=== PATIENT | female | born 1935 | race Caucasian/White ===

== ENCOUNTER 2016-11-21 12:43 | Outpatient (CLI) | payer MEDICARE, OTHER ==
[2016-11-21 14:42] LABS: #Eosinphils 0.1 thou/uL (0.0-0.7); #Lymphocytes 0.8 thou/uL (1.20-3.40); #Monocytes 0.5 thou/uL (0.11-0.59); #Neutrophils 4.6 thou/uL (1.40-6.50); %Basophils 0.5 % (0.0-1.0); %Eosinophils 2.4 % (0.0-10.0); %Lymphocytes 12.6 % (21.0-51.0); %Monocytes 7.5 % (0.0-10.0); Hematocrit 37.2 % (36.0-47.0); Red Blood Cell (RBC) Count 3.66 mill/uL (4.20-5.40)
[2016-11-21 14:51] LABS: Anion Gap 12 mmol/L (10-20); BUN (Urea Nitrogen) 20 mg/dL (9.8-20.1); Calc. Creatinine Clearance 0 mL/min (70-130); Calcium 9.1 mg/dL (7.8-10.44); Carbon Dioxide 25 mmol/L (23-31); Chloride 104 mmol/L (98-107); Estimated GFR-MDRD 74
== END 2016-11-21 12:44 | disposition home or self-care (01) ==
LOC: LABBT 12:43
PROVIDERS: ATTEND Specialist
DX: Z01.818 Encounter for other preprocedural examination (principal); G35 Multiple sclerosis
CPT/HCPCS: 80048; 85025; 93005; 93010

== ENCOUNTER 2016-12-04 10:30 | Day surgery (SDC) | payer MEDICARE, OTHER ==
[2016-11-21 13:24] VITALS: BMI 21.9
[2016-12-04] MEDS ORDERED: Ketorolac Tromethamine 30 MG/ML VIAL ONE (11:29)
[2016-12-04] MEDS ORDERED: CEFAZOLIN/Water 2 GM/20 ML SYRINGE ONE (11:29)
[2016-12-04] MEDS ORDERED: Lidocaine 2% w/Epinephrine 1:200K 20 ML VIAL ONE (14:19)
[2016-12-04] MEDS ORDERED: Bupivacaine 0.25% HCL 30 ML VIAL ONE (14:19)
[2016-12-04] MEDS ORDERED: Fentanyl 100 MCG/2 ML VIAL ONE (14:21)
[2016-12-04] MEDS ORDERED: Lidocaine 1% PF 5 ML VIAL ONE (14:40)
[2016-12-04] MEDS ORDERED: Propofol 200 MG/20 ML VIAL ONE (14:40)
[2016-12-04] MEDS ORDERED: Acetaminophen 325 MG TAB ONE (16:41)
--- NOTE | 2016-12-04 17:31 | RAD ---
PORTABLE UPRIGHT FRONTAL CHEST RADIOGRAPH: 12/04/16 COMPARISON: None. HISTORY: Mediport placement. FINDINGS: A right sided Mediport is present, distal tip overlying the cavoatrial junction. Moderate increased linear interstitial density is noted bilaterally, left greater than right. There is no pneumothorax, lobar consolidation or alveolar edema. IMPRESSION: Right sided Port-A-Cath present. Nonspecific bilateral interstitial prominence. POS: [facility]
--- OUTSIDE RECORDS SUMMARY | 2016-12-06 05:28 | XMS | Clinical Summary ---
:1935 Author Organization [facility] Address [address] [place] [address] Phone Care Team Providers Name Role Phone , Primary Care Provider Unavailable Allergies Not on File Current Medications Not on file Active Problems Not on file Social History Tobacco Use Types Packs/Day Years Used Date Never Assessed Sex Assigned at Date Recorded Not on file Last Filed Vital Signs Not on file Plan of Treatment Not on file Results Not on filefrom Last 3 Months
--- NOTE | 2016-12-07 02:30 | OP ---
DATE OF PROCEDURE: 12/04/2016 PREOPERATIVE DIAGNOSES: Multiple sclerosis with frequent need for IV access, peripheral vascular in sufficiency. POSTOPERATIVE DIAGNOSES: Multiple sclerosis with frequent need for IV access, peripheral vascular i nsufficiency. OPERATION PERFORMED: Placement of a low profile right subclavian power compatible MediPort. SURGEON: Uzair Caruso MD ANESTHESIA: Total intravenous anesthesia with local using 0.25% Marcaine with epinephrine. INDICATIONS: The patient is an 81-year-old white female. She has multiple sclerosis for which she requires frequent infusions. Obtaining peripheral IV access is progressively difficult and she is t herefore referred at this time for placement of MediPort. DESCRIPTION OF OPERATION: Informed consent was obtained. The patient was taken to the operating ro om where total intravenous anesthesia was obtained with the patient in supine position. Right chest was prepped with ChloraPrep and draped in sterile fashion. Local anesthetic was infiltrated and a large gauge needle was passed under the clavicle in the subclavian vein. Guidewire was passed throu gh the needle and fluoroscopically confirmed to enter the superior vena cava. Additional local anes thetic was infiltrated and transverse incision was created based on needle insertion site. Subcutan eous pocket was dissected. Introducer dilator was passed over the guidewire and the catheter was th en passed through the introducer, which was removed in the usual peel-apart fashion. The catheter t ip was positioned at the atrial caval junction and the catheter was trimmed to appropriate length an d secured to the locking hub of the MediPort. The port was secured to the pectoral fascia with 2 in terrupted sutures of 3-0 Prolene. The wound was closed in layers with 3-0 and 4-0 Monocryl. Dermab ond was placed externally. The port was accessed and aspirated uneventfully and flushed with hepari nized saline. There were no complications. Patient tolerated the procedure well and was taken to r ecovery room in stable condition. Post-procedure chest x-ray documents good position of the port an d catheter.
== END 2016-12-04 17:30 | disposition home or self-care (01) ==
LOC: SDC 10:30
PROVIDERS: ATTEND Specialist
PROC: 05H533Z Insertion of Infusion Device into Right Subclavian Vein, Percutaneous Approach (ICD-10-PCS; principal; 2016-12-04)
DX: G35 Multiple sclerosis (principal); I10 Essential (primary) hypertension; E78.5 Hyperlipidemia, unspecified; Z88.5 Allergy status to narcotic agent; Z88.8 Allergy status to other drugs, medicaments and biological substances; Z91.041 Radiographic dye allergy status; Z79.82 Long term (current) use of aspirin; Z79.899 Other long term (current) drug therapy; Z82.49 Family history of ischemic heart disease and other diseases of the circulatory system
CPT/HCPCS: 36561; 71010; 76000; C1788; J0131; J1642; J1885; J2001; J2704; J3010; S0020

== ENCOUNTER 2019-03-24 08:29 | Emergency (ER) | payer MEDICARE, OTHER ==
[2019-03-24] MEDS ORDERED: Ondansetron PF 4 MG/2 ML Vial ONE (08:42)
[2019-03-24] MEDS ORDERED: Acetaminophen 650 MG Suppository ONE (08:44)
--- NOTE | 2019-03-24 10:04 | RAD ---
XR Chest 1 View Portable HISTORY: Fever and body aches COMPARISON: 12/04/2016 FINDINGS: The heart size is normal. The aorta is tortuous. Right-sided Port-A-Cath remains in place. Chronic changes again noted bilaterally. The lungs are well expanded without focal areas of consolidation, pneumothorax or pleural effusions. IMPRESSION: No radiographic evidence of acute cardiopulmonary process.
[2019-03-24 10:26] LABS: #Lymphocytes 0.7 thou/uL (1.20-3.40); #Monocytes 1.2 thou/uL (0.11-0.59); #Neutrophils 12.6 thou/uL (1.40-6.50); %Basophils 0.1 % (0.0-1.0); %Eosinophils 0.1 % (0.0-10.0); %Lymphocytes 5.1 % (21.0-51.0); %Monocytes 8.3 % (0.0-10.0); %Neutrophils 86.5 % (42.0-75.0); Hemoglobin 11.3 g/dL (12.0-16.0); Mean Corpuscular HGB CONC 31.8 g/dL (32.0-36.0); Mean Corpuscular Hemoglobin 30.1 pg (27.0-31.0); Mean Corpuscular Volume 94.7 fL (78.0-98.0); Mean Platelet Volume 7.3 fL (7.4-10.4); Platelet Count 159 thou/uL (130-400); RBC Distribution Width 12.8 % (11.5-14.5); Red Blood Cell (RBC) Count 3.76 mill/uL (4.20-5.40); White Blood Cell (WBC) Count 14.6 thou/uL (4.8-10.8)
[2019-03-24 10:54] LABS: ALT (SGPT) 7 U/L (8-55); AST (SGOT) 15 U/L (5-34); Albumin 3.6 g/dL (3.4-4.8); Alkaline Phosphatase 53 U/L (40-110); Anion Gap 13 mmol/L (10-20); BUN (Urea Nitrogen) 17 mg/dL (9.8-20.1); Bilirubin, Total 0.7 mg/dL (0.2-1.2); CK (CPK) 113 U/L (29-168); Calc. Creatinine Clearance 0 mL/min (70-130); Calcium 8.6 mg/dL (7.8-10.44); Carbon Dioxide 21 mmol/L (23-31); Chloride 106 mmol/L (98-107); Estimated GFR-MDRD 80; Globulin 2.7 g/dL (2.4-3.5); Glucose 116 mg/dL (83-110); Magnesium 1.6 mg/dL (1.6-2.6); Potassium 3.8 mmol/L (3.5-5.1); Protein, Total 6.3 g/dL (6.0-8.3); Sodium 136 mmol/L (136-145)
[2019-03-24 11:03] LABS: Bacteria/HPF 4+ HPF (None Seen); Bilirubin Negative (Negative); Blood, Urine 1+ (Negative); Clarity Extra Turbid (Clear); Glucose, Urine (Dipstick) Normal (Negative); Leukocyte Negative Leu/uL (Negative); Nitrite Negative (Negative); Protein, Urine (Dipstick) 70 mg/dL (Neg-Trace); RBC/HPF 0-3 HPF (0-3); Squamous Epithelial None Seen HPF (0-3)
== END 2019-03-24 12:51 | disposition home or self-care (01) ==
LOC: ERS 08:29
DX: N39.0 Urinary tract infection, site not specified (principal); G35 Multiple sclerosis; Z87.891 Personal history of nicotine dependence; Z79.899 Other long term (current) drug therapy; Z79.82 Long term (current) use of aspirin
CPT/HCPCS: 36415; 51701; 71045; 80053; 81003; 81015; 82550; 83605; 83735; 84443; 84484; 85025; 87804; 93005; 96361; 96374; J2405

== ENCOUNTER 2019-03-28 22:50 | Emergency (ER) | payer MEDICARE, OTHER ==
[2019-03-28 23:31] LABS: #Eosinphils 0.1 thou/uL (0.0-0.7); #Monocytes 0.9 thou/uL (0.11-0.59); %Basophils 0.2 % (0.0-1.0); %Eosinophils 0.7 % (0.0-10.0); %Lymphocytes 9.5 % (21.0-51.0); %Monocytes 8.4 % (0.0-10.0); %Neutrophils 81.3 % (42.0-75.0); Hemoglobin 11.2 g/dL (12.0-16.0); Mean Corpuscular HGB CONC 34.1 g/dL (32.0-36.0); Mean Corpuscular Hemoglobin 31.8 pg (27.0-31.0); Mean Corpuscular Volume 93.3 fL (78.0-98.0); Platelet Count 213 thou/uL (130-400); RBC Distribution Width 12.4 % (11.5-14.5); Red Blood Cell (RBC) Count 3.54 mill/uL (4.20-5.40)
[2019-03-28] MEDS ORDERED: Ondansetron PF 4 MG/2 ML Vial ONE (23:34)
[2019-03-28] MEDS ORDERED: Acetaminophen 325 MG TAB ONE (23:34)
[2019-03-28] MEDS ORDERED: Cefepime 2 GM VIAL ONE (23:34)
--- NOTE | 2019-03-28 23:40 | RAD ---
Exam: Chest one view HISTORY:Cough. Comparison: 03/24/2019 FINDINGS: Cardiac silhouette:Normal cardiac silhouette. Lines and tubes: Stable right-sided Mediport catheter Aorta: Atherosclerosis Pulmonary vessels: Normal Costophrenic angles: Clear LUNGS: Lung parenchymal changes. Possible left perihilar infiltrate. Pneumothorax: None Osseous abnormalities: None IMPRESSION: Possible left perihilar infiltrate.
[2019-03-29 00:02] LABS: ALT (SGPT) 9 U/L (8-55); AST (SGOT) 15 U/L (5-34); Albumin 3.7 g/dL (3.4-4.8); Alkaline Phosphatase 69 U/L (40-110); Anion Gap 14 mmol/L (10-20); BUN (Urea Nitrogen) 10 mg/dL (9.8-20.1); Bilirubin, Total 0.5 mg/dL (0.2-1.2); Calc. Creatinine Clearance 0 mL/min (70-130); Calcium 8.9 mg/dL (7.8-10.44); Carbon Dioxide 24 mmol/L (23-31); Chloride 102 mmol/L (98-107); Estimated GFR-MDRD 84; Globulin 3.2 g/dL (2.4-3.5); Glucose 117 mg/dL (83-110); Potassium 3.4 mmol/L (3.5-5.1); Protein, Total 6.9 g/dL (6.0-8.3); Sodium 137 mmol/L (136-145)
[2019-03-29 00:36] LABS: Bacteria/HPF None Seen HPF (None Seen); Bilirubin Negative (Negative); Blood, Urine Trace (Negative); Clarity Clear (Clear); Glucose, Urine (Dipstick) Normal (Negative); Leukocyte Negative Leu/uL (Negative); Nitrite Negative (Negative); Protein, Urine (Dipstick) 50 mg/dL (Neg-Trace); Squamous Epithelial 0-3 HPF (0-3); Urobilinogen Normal mg/dL (Less than 2)
== END 2019-03-29 01:44 | disposition home or self-care (01) ==
LOC: ERS 22:50
DX: J18.9 Pneumonia, unspecified organism (principal); Z87.891 Personal history of nicotine dependence; Z79.899 Other long term (current) drug therapy; Z79.82 Long term (current) use of aspirin
CPT/HCPCS: 51701; 71045; 80053; 81003; 81015; 83605; 85025; 87040; 87086; 87149; 87804; 93005; 94760; 96365; 96367; 96375; A4353; J0692; J2405; J3370

== ENCOUNTER 2019-04-11 19:39 | Emergency (ER) | payer MEDICARE, OTHER ==
--- NOTE | 2019-04-11 20:39 | RAD ---
AP PELVIS: 04/11/19 HISTORY: Fall with injury. The bony pelvis appears intact. Hips appear intact. IMPRESSION: No acute fracture identified. POS: [facility]
--- NOTE | 2019-04-11 20:40 | RAD ---
LEFT ANKLE: 04/11/19 Three views. HISTORY: Fall. Minimal soft tissue swelling. No evidence of fracture. IMPRESSION: No acute fracture. POS: [facility]
--- NOTE | 2019-04-11 20:41 | RAD ---
LEFT TIBIA AND FIBULA: 04/11/19 HISTORY: Fall with injury. No evidence of fracture. No osseous abnormality. IMPRESSION: No acute abnormality. POS: [facility]
== END 2019-04-11 21:35 | disposition home or self-care (01) ==
LOC: ERS 19:39
DX: S90.01XA Contusion of right ankle, initial encounter (principal); S50.812A Abrasion of left forearm, initial encounter; Z87.891 Personal history of nicotine dependence; Z79.899 Other long term (current) drug therapy; Z79.82 Long term (current) use of aspirin; V00.141A Fall from scooter (nonmotorized), initial encounter
CPT/HCPCS: 72170